=== PATIENT | female | born 1980 | race Caucasian/White ===

== ENCOUNTER 2017-02-28 15:21 | Emergency (ER) | payer MEDICAID ==
[~2017-02-28] VITALS: Ht 157.5 cm; Wt 133.8 kg
[2017-02-28 15:21] VITALS: BP_SYST 130
--- NOTE | 2017-02-28 15:21 | NUR ---
BROUGHT BACK TO BED #5 AND TRIAGED. REPORT GIVEN TO MADI
--- NOTE | 2017-02-28 15:25 | NUR ---
Pt complains of blood in urine and flank pain that radiates to abdomen for 3 days. Pt states it carey when urinating. Pt denies fever, diarrhea, and vomiting but has nausea. No acute distress. No other injuries/complaints per patient or noted.
--- NOTE | 2017-02-28 15:30 | NUR ---
ER Dr. Quigley at bedside examining patient.
[2017-02-28 15:47] LABS: BILIRUBIN,URINE NEGATIVE (NEGATIVE); BLOOD, URINE NEGATIVE (NEGATIVE); CLARITY/URINE CLEAR (CLEAR); COLOR,URINE YELLOW (YELLOW); GLUCOSE,URINE NEGATIVE (NEGATIVE); KETONES,URINE NEGATIVE (NEGATIVE); LEUKOCYTE ESTERASE ,URINE NEGATIVE (NEGATIVE); NITRITE, URINE NEGATIVE (NEGATIVE); PROTEIN URINE NEGATIVE (NEGATIVE); UROBILINOGEN,URINE 0.2 (0.2-1.0)
[2017-02-28 17:19] VITALS: BP_SYST 134
--- NOTE | 2017-02-28 17:19 | NUR ---
Patient given written and verbal discharge instructions and verbalizes understanding. ER MD discussed with patient the results and treatment provided. Patient in stable condition. ID arm band removed. No Rx given. Patient educated on pain management and to follow up with PMD. Pain Scale 0/10. Opportunity for questions provided and answered.
== END 2017-02-28 17:19 | disposition home or self-care (01) ==
LOC: SED 15:21
DX: R10.9 Unspecified abdominal pain (principal); R31.9 Hematuria, unspecified; R11.0 Nausea; E11.9 Type 2 diabetes mellitus without complications; Z88.1 Allergy status to other antibiotic agents; Z88.8 Allergy status to other drugs, medicaments and biological substances
CPT/HCPCS: 81003; 81025; 99283